=== PATIENT | female | born 2000 | race Caucasian/White ===

== ENCOUNTER 2021-12-01 09:13 | Outpatient (CLI) | payer OTHER, SELFPAY ==
--- NOTE | 2021-12-01 09:15 | CT_ITS ---
Final Report Patient: VIRGILIO NAPOLES Facility:?[facility] Patient ID:?[id number] Site Patient ID:?[id number]. Site :?[id number] Study:?CT Sinus W/O-12/01/2021 9:50:36 AM Ordering Physician:Edy Huynh Final Report: INDICATION: Sinusitis. TECHNIQUE: CT sinus without contrast. COMPARISON: None. FINDINGS: Paranasal sinuses: Near complete opacification of the right frontal sinus. Ethmoid air cell mucosal thickening with opacification in the right anterior ethmoid air cells. Bilateral maxillary sinus mucosal thickening with small mucous retention cysts. No air-fluid levels. The ostiomeatal units are mildly narrowed due to bilateral infraorbital air cells present The fovea ethmoidalis and orbital buenrostro are intact. The nasal septum is mildly deviated to the left. Hypertrophy of the left inferior nasal turbinates. Mild hypertrophy of the right inferior nasal turbinates. Orbits and globes: Unremarkable. Visualized intracranial contents: Unremarkable. Soft tissues: Unremarkable. IMPRESSION: Right frontal, ethmoid, and bilateral maxillary sinus mucosal thickening consistent with given history of sinusitis. No air-fluid levels to suggest acute sinusitis. Please note that all CT scans at this facility use dose modulation, iterative reconstruction, and/or weight-based dosing when appropriate to reduce radiation dose to as low as reasonably achievable. Dictated by Davin Kaye MD @ 12/01/2021 10:47:45 AM (Electronic Signature)
== END 2021-12-01 09:14 | disposition home or self-care (01) ==
LOC: CT 09:16
PROVIDERS: PCP Family Medicine; Visit Provider Family Medicine
DX: J32.9 Chronic sinusitis, unspecified (principal); J33.0 Polyp of nasal cavity
CPT/HCPCS: 70486

== ENCOUNTER 2022-07-14 15:29 | Outpatient (CLI) | payer OTHER, SELFPAY ==
[2022-07-14 23:17] LABS: Chlamydia DNA Amplified* NOT DETECTED (No Detected); GC DNA Amplified* NOT DETECTED (No Detected)
== END 2022-07-14 15:30 | disposition home or self-care (01) ==
LOC: LKVREF 15:30
PROVIDERS: PCP Family Medicine; Visit Provider Registered Nurse
DX: N89.8 Other specified noninflammatory disorders of vagina (principal); Z11.3 Encounter for screening for infections with a predominantly sexual mode of transmission
CPT/HCPCS: 87491; 87591